=== PATIENT | female | born 1960 | race Hispanic/Latino ===

== ENCOUNTER 2017-02-19 09:55 | Emergency (ER) | payer MEDICAID ==
[2017-02-19 09:56] VITALS: BMI 24.9
[2017-02-19 10:34] VITALS: RESP 18
[2017-02-19] MEDS ORDERED: Oxycodone/Acetaminophen 5/325 mg Tab PO STA (10:46)
[2017-02-19] MEDS ORDERED: Oxycodone/Acetaminophen 5/325 mg Tab ONE (10:55)
--- NOTE | 2017-02-19 11:46 | CT ---
PROCEDURE: CT HEAD WITHOUT CONTRAST. HISTORY: headstrike, headache COMPARISON: None available. TECHNIQUE: Axial computed tomography images were obtained through the head/brain without intravenous contrast. Radiation dose: Total exam DLP = 720 mGy-cm. This CT exam was performed using one or more of the following dose reduction techniques: Automated exposure control, adjustment of the mA and/or kV according to patient size, and/or use of iterative reconstruction technique. FINDINGS: HEMORRHAGE: No intracranial hemorrhage. BRAIN: No mass effect or edema. No atrophy or chronic microvascular ischemic changes. VENTRICLES: Unremarkable. No hydrocephalus. CALVARIUM: Unremarkable. PARANASAL SINUSES: Unremarkable as visualized. No significant inflammatory changes. MASTOID AIR CELLS: Unremarkable as visualized. No inflammatory changes. OTHER FINDINGS: None. IMPRESSION: No acute intracranial abnormality. If focal neurologic deficit persists, consider MRI.
--- NOTE | 2017-02-19 11:47 | C.PDOC ---
History Of Present Illness Patient is a 56 y/o female that presents to the ED for evaluation of left sided rib pain for the last 2 months. Pt states she fell 2 months ago hitting her head , and landing on the left side of her body. Pt denies any LOC at the time, but states she had a bump on the left side of her head which has resolved now. Pt also complains of chronic reflux, and associated nausea, and vomiting. Pt states she is being seen by pain management for her chronic back and shoulder pain. Pt notes taking Percocet for her pain. Otherwise, denies any shortness of breath, cough, dysuria, hematuria, fever, chills, or any other associated symptoms at this time. Time Seen by Provider: 02/19/17 09:57 Chief Complaint (Nursing): Back Pain History Per: Patient History/Exam Limitations: no limitations Onset/Duration Of Symptoms: Days (2 months) Current Symptoms Are (Timing): Still Present Quality Of Discomfort: Burning, "Pain" Previous Symptoms: Prior Injury Associated Symptoms: None. denies: Incontinence, New Weakness, New Numbness Recent travel outside of the [place]: No Additional History Per: Patient Past Medical History Reviewed: Historical Data, Nursing Documentation, Vital Signs Vital Signs: Last Vital Signs Temp 98.4 F 02/19/17 10:28 Pulse 78 02/19/17 10:28 Resp 18 02/19/17 10:28 BP 173/98 H 02/19/17 10:28 Pulse Ox 96 02/19/17 12:04 - Medical History PMH: Anxiety, Arthritis, Back Problems (HEAD TRAUMA IN 2008), Bipolar Disorder, Depression, Fractures (spinal Fx), HTN, Migraine, Pulmonary Embolism (May 2016) Denies: Chronic Kidney Disease - [facility] Procedures ANESTH INJEC PERIPH NERV (12/11/13) ANESTH INJECT SYMP NERVE (10/29/14) INJECT STEROID (10/29/14) PHYSICAL THERAPY NEC (09/15/14) SYMPATH NERVE INJECT NEC (10/29/14) Family History: States: No Known Family Hx - Social History Hx Tobacco Use: No Hx Alcohol Use: Yes Hx Substance Use: No - Immunization History Hx Tetanus Toxoid Vaccination: () Hx Influenza Vaccination: Yes (2015) Hx Pneumococcal Vaccination: Yes Review Of Systems Except As Marked, All Systems Reviewed And Found Negative. Constitutional: Negative for: Fever, Chills Cardiovascular: Positive for: Other (left side rib pain). Negative for: Chest Pain, Palpitations Respiratory: Negative for: Cough, Shortness of Breath Gastrointestinal: Positive for: Nausea, Vomiting. Negative for: Abdominal Pain Genitourinary: Negative for: Dysuria, Hematuria Physical Exam - Physical Exam Additional Physical Exam Comments: Constitutional: No acute distress. Head: Normocephalic. Atraumatic. Eyes: PERRL. ENT: Moist mucous membranes. Neck: Supple. No midline tenderness. Cardiovascular: Regular rate. Radial pulse 2+ bilaterally. Chest: Left side rib tenderness. No crepitus. Respiratory: Clear to auscultation bilaterally. GI: Soft. Nontender. Nondistended. Back: No CVA tenderness. No midline tenderness. Musculoskeletal: No tenderness or swelling of extremities. Skin: No rash. No ecchymosis. Neurologic: Alert, no focal deficit. ED Course And Treatment O2 Sat by Pulse Oximetry: 96 Medical Decision Making Medical Decision Making: Progress note: Head CT, left ribs/chest x-ray ordered and reviewed. Patient was treated with Percocet, and Zofran PO in the ED. CXR: No rib fracture, no pneumothorax, no pleural effusion, no infiltrates. Head CT FINDINGS: HEMORRHAGE: No intracranial hemorrhage. BRAIN: No mass effect or edema. No atrophy or chronic microvascular ischemic changes. VENTRICLES: Unremarkable. No hydrocephalus. CALVARIUM: Unremarkable. PARANASAL SINUSES: Unremarkable as visualized. No significant inflammatory changes. MASTOID AIR CELLS: Unremarkable as visualized. No inflammatory changes. OTHER FINDINGS: None. IMPRESSION: No acute intracranial abnormality. If focal neurologic deficit persists, consider MRI. Will discharge patient home, instructed to f/u with pain management. Instructed to return to the ER for worsening pain, fever, dyspnea, or any other problem. Disposition - Disposition Referrals: Boubacar Beavers MD [Medical Doctor] - Disposition: HOME/ ROUTINE Disposition Time: 12:14 Condition: STABLE Instructions: Rib Contusion (ED) - Clinical Impression Clinical Impression: Contusion of rib on left side - Scribe Statement The provider has reviewed the documentation as recorded by the Shanta Watkins Provider Attestation: All medical record entries made by the Taraiblucian were at my direction and personally dictated by me. I have reviewed the chart and agree that the record accurately reflects my personal performance of the history, physical exam, medical decision making, and the department course for this patient. I have also personally directed, reviewed, and agree with the discharge instructions and disposition.
--- NOTE | 2017-02-19 12:21 | RAD ---
Chest and left ribs four views History: Left-sided rib pain. Comparison: None available. Findings: Mild venous congestion. Patchy increased markings at the left lung base. Tortuous aorta. Postsurgical changes in the proximal humerus. No evidence of gross pneumothorax. Question mild cortical irregularity at the lateral aspect of the left 9th rib which may represent nondisplaced fracture. Clinical correlation. Impression: No evidence of gross pneumothorax. Question mild cortical irregularity at the lateral aspect of the left 9th rib which may represent nondisplaced fracture. Clinical correlation.
[2017-02-19 12:23] VITALS: BP 175/107; PULSE 69; TEMP 98; O2SAT 95
== END 2017-02-19 12:23 | disposition home or self-care (01) ==
LOC: C.ER 09:55
DX: S20.212A Contusion of left front wall of thorax, initial encounter (principal); W19.XXXA Unspecified fall, initial encounter; Y93.9 Activity, unspecified; Y92.9 Unspecified place or not applicable

== ENCOUNTER 2017-12-07 07:18 | Emergency (ER) | payer MEDICAID ==
[2017-12-07 07:18] VITALS: BMI 24.0
[2017-12-07 07:34] VITALS: O2SAT 95
[2017-12-07] MEDS ORDERED: Sodium Chloride 0.9% 1,000 ML IV ONE (07:59)
--- NOTE | 2017-12-07 08:10 | C.PDOC ---
History Of Present Illness 56 yo female w/PMHx of HTN, hx of PE ( 2016) , Anxiety, Arthritis, Bipolar Disorder, Depression, hx of spinal Fractures , chronic neck and back pain ( under Pain management of Dr. Torres) present to ED for evaluation of exacerbation of middle back pain. Pt also reports, (+) few episodes of vomiting for past 2 days," was unable tolerate my medication yesterday" . Pt also admits, cold sx prior to onset of current sx, " might strain my back from all hard cough I had" . Otherwise, pt denies high fever, chills, headache, dizziness, neck pain, CP, SOB, dyspnea, diaphoresis, palpitation, hematemesis, diarrhea, back pain, UTI sx. Ambulate to ED for evaluation, not in nay apparent distress. Time Seen by Provider: 12/07/17 07:26 Chief Complaint (Nursing): Back Pain History Per: Patient Past Medical History Reviewed: Historical Data, Nursing Documentation, Vital Signs Vital Signs: Last Vital Signs Temp 98.4 F 12/07/17 07:25 Pulse 74 12/07/17 07:25 Resp 20 12/07/17 07:25 BP 120/86 12/07/17 07:25 Pulse Ox 95 12/07/17 10:38 - Medical History PMH: Anxiety, Arthritis, Back Problems (HEAD TRAUMA IN 2008), Bipolar Disorder, Depression, Fractures (spinal Fx), HTN, Migraine, Pulmonary Embolism (May 2016) Denies: Chronic Kidney Disease - [facility] Procedures ANESTH INJEC PERIPH NERV (12/11/13) ANESTH INJECT SYMP NERVE (10/29/14) INJECT STEROID (10/29/14) PHYSICAL THERAPY NEC (09/15/14) SYMPATH NERVE INJECT NEC (10/29/14) Family History: States: No Known Family Hx - Social History Hx Tobacco Use: No Hx Alcohol Use: No Hx Substance Use: Yes - Immunization History Hx Tetanus Toxoid Vaccination: (k) Hx Influenza Vaccination: Yes (2015) Hx Pneumococcal Vaccination: Yes Review Of Systems Except As Marked, All Systems Reviewed And Found Negative. Constitutional: Negative for: Fever, Chills Eyes: Negative for: Vision Change ENT: Negative for: Nose Discharge, Throat Pain, Throat Swelling Cardiovascular: Negative for: Chest Pain, Palpitations, Edema, Light Headedness Respiratory: Positive for: Cough. Negative for: Shortness of Breath, Wheezing Gastrointestinal: Positive for: Nausea, Vomiting. Negative for: Abdominal Pain , Diarrhea, Melena, Hematochezia, Hematemesis Genitourinary: Negative for: Dysuria, Frequency, Incontinence Musculoskeletal: Positive for: Back Pain. Negative for: Neck Pain Skin: Negative for: Rash Neurological: Negative for: Weakness, Numbness, Altered Mental Status, Headache , Dizziness Physical Exam - Physical Exam Appears: Well, Non-toxic, No Acute Distress Skin: Normal Color, Warm, Dry Head: Normacephalic Eye(s): bilateral: PERRL Nose: No Flaring, No Discharge Oral Mucosa: Moist, No Drooling Throat: No Erythema, No Drooling Neck: Trachea Midline, Supple Cardiovascular: Rhythm Regular, No Murmur, No JVD, Other ((-) carotid bruits b/L ) Respiratory: No Decreased Breath Sounds, No Accessory Muscle Use, No Stridor, No Wheezing Gastrointestinal/Abdominal: Soft, No Tenderness, No Distention, No Guarding Back: No CVA Tenderness, No Vertebral Tenderness, Other (diffuse periscapular tenderness, no mdiline tenderness) Extremity: Normal ROM, No Deformity, No Swelling Neurological/Psych: Oriented x3, Normal Speech ED Course And Treatment - Laboratory Results Result Diagrams: 12/07/17 08:59 12/07/17 08:59 Lab Interpretation: Normal ECG: Interpreted By Me, Viewed By Me (and ED attending) Interpretation Of ECG: SR@62/min, NAD, T wave inversion in III, no acute ST-T changes. O2 Sat by Pulse Oximetry: 95 Pulse Ox Interpretation: Normal - Radiology CXR: Interpreted by Me, Viewed By Me CXR Interpretation: Yes: No Acute Disease - Other Rad CXR X-Ray: Read By Radiologist Interpretation: LUNGS: No active pulmonary disease. PLEURA: No significant pleural effusion identified. No pneumothorax apparent. CARDIOVASCULAR: Normal. Left cardiophrenic benign fat pad probable -similar-appearing. OSSEOUS STRUCTURES: Right proximal humeral orthopedic hardware partially visualize. Bilateral shoulder arthrosis. VISUALIZED UPPER ABDOMEN: Normal. OTHER FINDINGS: None. IMPRESSION: No active disease. Progress Note: Pt was OBS in ED for 3.5 hours. On re-eval, pt reports moderate improvement in her symptoms, pt st " my back pain is gone". Afebrile, hemdoynamicalys table. Non-toxic. Pt was given PO challenfe, tolerated well. PuslEOx 95% RA. ENT: no acute findings. neck: SUpple, (-) JVD, (-) carotid bruits B/L. Lungs: CTA B/L, BS equal B/L. CVS: (+)S1S2, reg, (-) murmur. Abd : benign, (-) guarding, (-) rebound. Back: (-) CVA tenderness. Neuorlogicaly intact. Blood work review and appears without acute abnormalities. CXR, EKG- normal study. Pt has clinical findings c/w diffuse back pain, hx of chronic back pain; vomiting r/o viral illness. Pt advised. ref. to f/u with PMD in 2- 3 days for re-eavl. return to ED if any worsening or new changes. Disposition Counseled Patient/Family Regarding: Studies Performed, Diagnosis, Need For Followup, Rx Given - Disposition Referrals: Brian Oliver,MD Isacc [Non-Staff] - [facility] [Outside] Disposition: HOME/ ROUTINE Disposition Time: 10:37 Condition: STABLE Additional Instructions: ENCOURAGE FLUIDS TAKE MEDICATION FOR NAUSEA AND VOMITING PRESCRIBED FOLLOW UP WITH PMD, PAIN MANAGEMENT IN 2-3 DAYS FOR RE-EVALUATION. RETURN TO ED IF ANY WORSENING OR NEW CHANGES. Prescriptions: Ondansetron ODT [Zofran ODT] 1 odt PO BID PRN #6 odt PRN Reason: Nausea/Vomiting Instructions: Acute Nausea and Vomiting (ED), Chronic Back Pain (ED) Forms: [employer] (Azeri) - Clinical Impression Clinical Impression: Vomiting, Back pain
--- NOTE | 2017-12-07 08:18 | RAD ---
HISTORY: SOB COMPARISON: 02/19/2017 TECHNIQUE: Chest PA and lateral FINDINGS: LUNGS: No active pulmonary disease. PLEURA: No significant pleural effusion identified. No pneumothorax apparent. CARDIOVASCULAR: Normal. Left cardiophrenic benign fat pad probable -similar-appearing OSSEOUS STRUCTURES: Right proximal humeral orthopedic hardware partially visualize. Bilateral shoulder arthrosis VISUALIZED UPPER ABDOMEN: Normal. OTHER FINDINGS: None. IMPRESSION: No active disease.
[2017-12-07] MEDS ORDERED: MethylPREDNISolone 40 mg Vial ONE (09:02)
[2017-12-07] MEDS ORDERED: Sodium Chloride 0.9% 1,000 ML ONE (09:02)
[2017-12-07 09:07] LABS: BASO % 0.5 % (0.0-2.0); EOS # 0.1 K/uL (0.0-0.7); EOS % 1.4 % (0.0-4.0); HEMOGLOBIN 14.5 g/dL (11.0-16.0); LYMPH # 1.4 K/uL (1.0-4.3); LYMPH % 20.6 % (20.0-40.0); MEAN CELL VOLUME 89.4 fL (81.0-99.0); MEAN CORPUSCULAR HEMOGLOBIN 30.9 pg (27.0-31.0); MEAN CORPUSCULAR HGB CONC 34.6 g/dL (33.0-37.0); MEAN PLATELET VOLUME 8.9 fL (7.2-11.7); MONO # 0.6 K/uL (0.0-0.8); MONO % 8.7 % (0.0-10.0); NEUT # 4.7 K/uL (1.8-7.0); NEUT % 68.8 % (50.0-75.0); RBC 4.67 Mil/uL (3.80-5.20); RED CELL DISTRIBUTION WIDTH 13.5 % (11.5-14.5); WHITE BLOOD COUNT 6.9 K/uL (4.8-10.8)
[2017-12-07 09:21] LABS: ALB/GLOB RATIO 1.4 (1.0-2.1); ALBUMIN 4.3 g/dL (3.5-5.0); ALT/SGPT 33 U/L (9-52); AST/SGOT 25 U/L (14-36); BLOOD UREA NITROGEN 10 mg/dL (7-17); CALCIUM 9.9 mg/dl (8.6-10.4); GFR AFRICAN-AMERICAN > 60; GFR NON-AFRICAN AMERICAN > 60
[2017-12-07 10:32] LABS: INR 1.1; PARTIAL THROMBOPLASTIN TIME 29 SECONDS (21-34); PROTHROMBIN TIME 12.5 SECONDS (9.7-12.2)
[2017-12-07 10:33] LABS: D DIMER < 200 ng/mlDDU (0-243)
[2017-12-07 11:13] VITALS: BP 136/84; PULSE 60; RESP 16; TEMP 97.6
--- NOTE | 2017-12-07 20:54 | CARD ---
APPROVED REPORT EKG Measurement Heart [id number] <Conclusion> Normal sinus rhythm Nonspecific ST abnormality Abnormal ECG
== END 2017-12-07 11:30 | disposition home or self-care (01) ==
LOC: C.ER 07:18
DX: M54.9 Dorsalgia, unspecified (principal); R11.10 Vomiting, unspecified; I10 Essential (primary) hypertension; Z86.711 Personal history of pulmonary embolism
CPT/HCPCS: 71046; 80053; 85025; 85378; 85610; 85730; 93005; 96361; 96374; 96375; 99284; J2405; J2930; J7040

== ENCOUNTER 2018-04-18 08:07 | Inpatient (IN) | payer MEDICAID ==
[2018-04-18 08:08] VITALS: BMI 24.0
--- NOTE | 2018-04-18 08:29 | C.PDOC ---
History Of Present Illness 57yo female, presents to ED for evaluation of worsening suicidal ideation over the past several days. Patient reports she has been feeling suicidal over the past month; she states 1 month ago, she was advised by Dr. Massey for admission but she did not want it at that time. Patient also reports she misplaced her medications sometimes over the weekend and has not taken a dose since 04/13/18/. She denies any suicidal attempts. Patient offers no medical complaints. PMD: None provided Time Seen by Provider: 04/18/18 08:21 Chief Complaint (Nursing): Psychiatric Evaluation History Per: Patient History/Exam Limitations: no limitations Onset/Duration Of Symptoms: Persistent Current Symptoms Are (Timing): Still Present Associated Symptoms: Suicidal Thoughts. denies: Suicidal Plan Additional History Per: Patient Past Medical History Reviewed: Historical Data, Nursing Documentation, Vital Signs Vital Signs: Last Vital Signs Temp 98.4 F 04/18/18 08:09 Pulse 83 04/18/18 08:09 Resp 18 04/18/18 08:09 BP 159/101 H 04/18/18 08:09 Pulse Ox 98 04/18/18 09:35 - Medical History PMH: Anxiety, Arthritis, Back Problems (HEAD TRAUMA IN 2008), Bipolar Disorder, Depression, Fractures (spinal Fx), HTN, Migraine, Pulmonary Embolism (May 2016) Denies: Chronic Kidney Disease Surgical History: No Surg Hx - [facility] Procedures ANESTH INJEC PERIPH NERV (12/11/13) ANESTH INJECT SYMP NERVE (10/29/14) INJECT STEROID (10/29/14) PHYSICAL THERAPY NEC (09/15/14) SYMPATH NERVE INJECT NEC (10/29/14) Family History: States: No Known Family Hx - Social History Hx Tobacco Use: No Hx Alcohol Use: No Hx Substance Use: Yes - Immunization History Hx Tetanus Toxoid Vaccination: (unk) Hx Influenza Vaccination: Yes (2015) Hx Pneumococcal Vaccination: Yes Review Of Systems Except As Marked, All Systems Reviewed And Found Negative. Constitutional: Negative for: Fever, Chills Cardiovascular: Negative for: Chest Pain Respiratory: Negative for: Shortness of Breath Gastrointestinal: Negative for: Abdominal Pain Psych: Positive for: Suicidal ideation Physical Exam - Physical Exam Appears: Other (anxious appearing) Skin: Warm, Dry Head: Atraumatic, Normacephalic Eye(s): bilateral: Normal Inspection Oral Mucosa: Moist Neck: Normal ROM, Supple Chest: Symmetrical Cardiovascular: Rhythm Regular Respiratory: Normal Breath Sounds Extremity: Normal ROM Neurological/Psych: Oriented x3, Other (active suicidal ideation no psychosis) ED Course And Treatment - Laboratory Results Result Diagrams: 04/18/18 08:37 04/18/18 08:37 O2 Sat by Pulse Oximetry: 98 (RA) Pulse Ox Interpretation: Normal Progress - Re-Evaluation Re-evaluation Note: 04/18/18 09:35 MED CLEAR FOR CRISIS EVAL. CRISIS NOTIFIED. - Data Reviewed Data Reviewed: Lab, Diagnostic imaging, Old records Disposition Counseled Patient/Family Regarding: Studies Performed, Diagnosis - Disposition Disposition: HOSPITALIZED Disposition Time: 09:57 Condition: STABLE Forms: [employer] (Georgian) - POA Present On Arrival: None - Clinical Impression Clinical Impression: Major depression, Suicidal ideation - Scribe Statement The provider has reviewed the documentation as recorded by the Scribe (Jennifer Jay) Provider Attestation: All medical record entries made by the Scribe were at my direction and personally dictated by me. I have reviewed the chart and agree that the record accurately reflects my personal performance of the history, physical exam, medical decision making, and the department course for this patient. I have also personally directed, reviewed, and agree with the discharge instructions and disposition. Decision To Admit - Pt Status Changed To: Hospital Disposition Of: Inpatient - Admit Certification Admit to Inpatient:: After my assessment, the patient will require hospitalization for at least two midnights. This is because of the severity of symptoms shown, intensity of services needed, and/or the medical risk in this patient being treated as an outpatient. - InPatient: Physician Admission Certification: I certify that this patient requires 2 or more midnights of care for the following reason:: SEE NOTE - . Bed Request Type: Psychiatry Admitting Physician: Neeru Jimenez Patient Diagnosis: Major depression, Suicidal ideation
[2018-04-18 08:42] LABS: BASO # 0.1 K/uL (0.0-0.2); BASO % 0.7 % (0.0-2.0); EOS % 0.3 % (0.0-4.0); HEMOGLOBIN 14.2 g/dL (11.0-16.0); LYMPH % 11.1 % (20.0-40.0); MEAN CELL VOLUME 87.5 fL (81.0-99.0); MEAN CORPUSCULAR HEMOGLOBIN 30.7 pg (27.0-31.0); MEAN CORPUSCULAR HGB CONC 35.1 g/dL (33.0-37.0); MEAN PLATELET VOLUME 8.8 fL (7.2-11.7); MONO # 0.3 K/uL (0.0-0.8); MONO % 3.6 % (0.0-10.0); NEUT # 7.3 K/uL (1.8-7.0); NEUT % 84.3 % (50.0-75.0); NRBC % 0.1 % (0.0-2.0); RBC 4.63 Mil/uL (3.80-5.20); RED CELL DISTRIBUTION WIDTH 13.9 % (11.5-14.5); WHITE BLOOD COUNT 8.7 K/uL (4.8-10.8)
[2018-04-18 09:00] LABS: ACETAMINOPHEN < 10.0 ug/mL (10.0-30.0); SALICYLATE < 1.0 mg/dL 1
[2018-04-18 09:02] LABS: ALB/GLOB RATIO 1.5 (1.0-2.1); ALBUMIN 4.5 g/dL (3.5-5.0); ALT/SGPT 14 U/L (9-52); AST/SGOT 25 U/L (14-36); BLOOD UREA NITROGEN 4 mg/dL (7-17); CALCIUM 9.7 mg/dl (8.6-10.4); GFR AFRICAN-AMERICAN > 60; GFR NON-AFRICAN AMERICAN > 60
[2018-04-18 09:09] LABS: URINE BILIRUBIN NEGATIVE (NEGATIVE); URINE BLOOD NEGATIVE (NEGATIVE); URINE CLARITY Clear (Clear); URINE COLOR YELLOW (YELLOW); URINE GLUCOSE (UA) NEGATIVE (Normal); URINE PROTEIN NEGATIVE (NEGATIVE); URINE UROBILINOGEN 0.2 mg/dL (0.2-1.0)
[2018-04-18 09:10] LABS: SQUAMOUS EPITHIAL 5 /hpf (0-5); URINE LEUKOCYTE ESTERASE NEGATIVE Leu/uL (Negative)
[2018-04-18 09:11] LABS: BARBITURATES, UR NEGATIVE (NEGATIVE); OPIATES, UR NEGATIVE (NEGATIVE); PHENCYCLIDINE, UR NEGATIVE (NEGATIVE)
[2018-04-18 09:33] LABS: BENZODIAZEPINES, UR POSITIVE (NEGATIVE)
--- NOTE | 2018-04-18 12:28 | PCM.PSYCH ---
Initial Psychiatric Evaluation - Initial Psychiatric Evaluation Type of Admission: Voluntary Legal Status: Capacity Chief Complaint (in patient's own words): I was feeling very depressed and suicidal.' History of Present Illness and Precipitating Events: Patient is a 57 y/o CF, who lives alone and currently unemployed, came to the ED for depressed mood and suicidal ideations with plan. Patient reports a long history of bipolar disorder. She has been admitted at [facility] in the past. (1989) Since then she has been following up with the outpatient clinic, [facility]. Currently she is seeing Dr. Massey. As per the patient, since past few weeks she is becoming increasingly depressed. admission since few weeks recently depressed. Patient further explained that she's been off her medications for about 5 days due to being unable to locate them and since she's been off them her psychiatric symptoms have increased. Patient currently admits to suicidal ideations with a plan to "buy drugs and drink alcohol". Patient also stated that, 'this morning she was heading to [facility] to take a train to go somewhere where nobody knows her so she could " ". She reports depressed mood, feelings of hopelessness and helplessness and crying spells. She reports stressors including back pain and neck pain, and living alone. She also reports irritability and agitation and poor sleep. She also reports auditory hallucinations noncommand type and visual hallucinations, seeing shadows. However she denies any delusions. She denies any drinking or any substance abuse. PMH HTN, Back pain Current Medications: Active Medications Generic Name Dose Route Start Last Admin Trade Name Freq PRN Reason Stop Dose Admin Acetaminophen 650 mg 04/18/18 12:12 Tylenol 325mg Tab PO Q4H PRN Fever greater than 101 F Albuterol puff 04/18/18 12:30 Ventolin Hfa 90 Mcg/Actuation (8 G) IH DAILY MARY Clonidine HCl 0.1 mg 04/18/18 12:12 Catapres PO Q8 PRN COWS Score More or Equal to 5 Home Med 160 mg 04/18/18 12:30 Valsartan [Diovan] PO DAILY MARY Hydroxyzine HCl 25 mg 04/18/18 12:13 Atarax PO Q6 PRN Anxiety Lorazepam 1 mg 04/18/18 12:24 Ativan PO Q6 PRN Agitation Trazodone HCl 50 mg 04/18/18 22:00 Desyrel PO [facility] Past Psychiatric History - Past Psychiatric History Previous Treatment History: Inpatient Pertinent Medical Hx (Current Medical&Sleep Prob, Allergies): Allergies Allergy/AdvReac Type Severity Reaction Status Date / Time acetaminophen [From Tylenol] Allergy RASH Verified 04/18/18 08:13 aspirin Allergy RASH Verified 04/18/18 08:13 ibuprofen Allergy VOMITING Verified 04/18/18 08:13 ALPRAZolam [Xanax] 1 mg PO TID 04/27/16 Valsartan [Diovan] 160 mg PO DAILY 08/25/16 Albuterol HFA [Ventolin HFA 90 mcg/actuation (8 g)] 2 100 IH DAILY 02/19/17 Abilify 04/18/18 Paxil 04/18/18 Review of Systems - Review of Systems All systems: reviewed and no additional remarkable complaints except - Psychiatric Psychiatric: Anxiety, Auditory Hallucinations, Irritability, Mood Swings, Suicidal Ideation Mental Status Examination - Personal Presentation Personal Presentation: Looks stated age - Affect Affect: Broad - Motor Activity Motor Activity: Calm - Reliability in Providing Information Reliability in Providing Information: Fair - Speech Speech: Organized - Mood Mood: Depressed, Anxious - Formal Thought Process Formal Thought Process: Hallucinations, Delusions, Paranoia - Hallucinations/Delusions Hallucinations: Visual, Auditory Delusions: Persecution - Obsessions/Compulsions Obsessions: No Compulsions: No - Cognitive Functions Orientation: Person, Place, Situation, Time Sensorium: Alert Attention/Concentration: Attentive Abstract Thinking: [place] Estimate of Intelligence: Below average Judgement: Imparied, as evidence by: Poor judgement, Imparied, as evidence by: Lack of insight into illness - Risk Risk: Suicidal, Diminished functioning - Limitations Limitations: Living alone DSM 5 DX - DSM 5 DSM 5 Diagnosis: Bipolar disorder MRE mixed severe without psychotic features Cannabis use disorder moderate - Recommended/Plan of Treatment Treatment Recommendations and Plan of Treatment: Bipolar disorder MRE mixed severe without psychotic features Cannabis use disorder moderate -CBT -Psychoeducation -Supportive therapy, group therapy, individual therapy -Abilify 5 mg by mouth daily at bedtime -Trazodone 50 mg by mouth daily at bedtime -Paxil 20 mg by mouth daily- -Ativan 1 mg by mouth every 6 hours when necessary -Hydroxyzine 25 mg by mouth every 6 hours when necessary HTN Continue medication Back pain Tramadol 50 mg by mouth every 8 hours when necessary
[2018-04-18] MEDS ORDERED: Albuterol HFA 90 mcg/actuation (8 g) IH PRN (12:30)
--- NOTE | 2018-04-18 15:08 | PCM.BM ---
<June Balderrama - Last Filed: 04/18/18 15:06> Treatment Plan Problems - Problems identified on initial assessmt depression Date Initiated: 04/18/18 Time Initiated: 15:07 Assessment reference: NA Status: Active Treatment assets and liabiliti Patient Assests: cooperative, ADL independent, cognitively intact Patient Liabilities: live alone, poor support system, medical problems - Milieu Protocol Maintain good personal hygiene: daily Encourage regular showers Conduct patient checks and document Observation sheet: Q15 minutes Maintain personal safety: every shift Educate patient to report safety concerns to staff, every shift Monitor environment for contraband/sharps Medication safety: Monitor for expected outcome, potential side effects: every shift, Assess barriers to learning: every shift, Assess readiness for medication education: every shift <Lina Isaacs - Last Filed: 04/20/18 14:41> Family Contact Family involvement: Patient does not wish Family/SO involvement Family contact: Patient declines to allow family contact at present - Goals for Treatment Patient goals for treatment: "I want to return to [facility] with Dr. Massey." Discharge/Continuing Care - Education Needs Education Needs: Patient Medication, Patient Diagnosis/Disease Process - Discharge Discharge Criteria: Free of Suicidal thoughts, Ability to care for self, Reduction of target symptoms Discharge to:: Home - Treatment Team Participation Discussed with Family/SO: No Was Patient/Family/SO present at Treatment Team Meeting: Yes <Neeru Jimenez - Last Filed: 04/23/18 11:26> - Diagnosis (1) Bipolar disorder Status: Acute Interventions: 04/23/18 11:26 * Assess/adjust medications daily and /or as needed * See patient on an individual basis 7x/week to assess level of manic behaviors and stability * Discuss risks, benefits, side effects and alternatives of medications *
--- NOTE | 2018-04-19 10:09 | PCM.PYCHPN ---
Psychiatric Progress Note - Psychiatric Progress Note Patient seen today, length of contact: 15 min Patient Chief Complaint: I was feeling very depressed' Problems Identified/Issues Discussed: Patient seen and evaluated, chart reviewed and discussed with the nurse. Pt still reports depressed mood and reports feelings of hopelessness and helplessness. She was found crying in her room and still reports poor sleep and poor appetite. She remained isolated and withdrawn. She is taking medications and denies any side effects Symptoms are improving but she needs more time for stabilization. Supportive therapy and psychoeducation were given. Medication Change: Yes Medical Record Reviewed: Yes Mental Status Examination - Cognitive Function Orientation: Person, Place, Situation, Time Memory: Intact Attention: WNL Concentration: Poor Association: WNL Fund of Knowledge: Poor - Mood Mood: Depressed, Anxious - Affect Affect: Broad - Speech Speech: Soft - Formal Thought Process Formal Thought Process: Hallucinations, Delusions - Suicidal Ideation Suicidal Ideation: No - Homicidal Ideation Homicidal Ideation: No Goal/Treatment Plan - Goal/Treatment Plan Need for Continued Stay: Severe depression anxiety, Severe functional impairment Progress Toward Problem(s) and Goals/Treatment Plan: Bipolar disorder MRE mixed severe without psychotic features Cannabis use disorder moderate -CBT -Psychoeducation -Supportive therapy, group therapy, individual therapy -Abilify 5 mg by mouth daily at bedtime -Trazodone 50 mg by mouth daily at bedtime -Paxil 20 mg by mouth daily- -Ativan 1 mg by mouth every 6 hours when necessary -Hydroxyzine 25 mg by mouth every 6 hours when necessary HTN Continue medication Back pain Tramadol 50 mg by mouth every 8 hours when necessary
--- NOTE | 2018-04-20 15:43 | PCM.PYCHPN ---
Psychiatric Progress Note - Psychiatric Progress Note Patient seen today, length of contact: 15 min Patient Chief Complaint: I m still feeling very depressed' Problems Identified/Issues Discussed: Patient seen and evaluated, chart reviewed and discussed with the nurse. Pt still reports depressed mood but reports some improvement in the feelings of hopelessness and helplessness. She denies any crying episode but still reports poor sleep and poor appetite. She remained isolated and withdrawn. She is taking medications and denies any side effects Symptoms are improving but she needs more time for stabilization. Supportive therapy and psychoeducation were given. Medication Change: Yes (Increase Abilify, start Neurontin) Medical Record Reviewed: Yes Mental Status Examination - Cognitive Function Orientation: Person, Place, Situation, Time Memory: Intact Attention: WNL Concentration: Poor Association: WNL Fund of Knowledge: Poor - Mood Mood: Depressed, Anxious - Affect Affect: Broad - Speech Speech: Soft - Formal Thought Process Formal Thought Process: Hallucinations, Delusions - Suicidal Ideation Suicidal Ideation: No - Homicidal Ideation Homicidal Ideation: No Goal/Treatment Plan - Goal/Treatment Plan Need for Continued Stay: Severe depression anxiety, Severe functional impairment Progress Toward Problem(s) and Goals/Treatment Plan: Bipolar disorder MRE mixed severe without psychotic features Cannabis use disorder moderate -CBT -Psychoeducation -Supportive therapy, group therapy, individual therapy -Abilify 10 mg by mouth daily at bedtime -Trazodone 50 mg by mouth daily at bedtime -Paxil 20 mg by mouth HS -Neurontin 100 mg by mouth 3 times a day -Ativan 1 mg by mouth every 6 hours when necessary -Hydroxyzine 25 mg by mouth every 6 hours when necessary HTN Continue medication Back pain Tramadol 50 mg by mouth every 8 hours when necessary
--- NOTE | 2018-04-21 16:08 | PCM.PYCHPN ---
Psychiatric Progress Note - Psychiatric Progress Note Patient seen today, length of contact: 15 min Patient Chief Complaint: "My sleep was better last night" Problems Identified/Issues Discussed: Patient was seen. Chart was reviewed important content noted. Nurse input received. Patient has no new complaints. No events overnight. Patient slept well and is eating well. Patient still has depressive symptoms. Denies suicidal or homicidal ideations. Patient does not report hallucinations. No delusions elicited. No paranoia elicited. Patient has remained in good clinical and behavioral control. Symptoms are improving, but needs more time to stabilize. Patient is finding medications beneficial and would like to continue with treatment plan. Patient appreciated that treatment team is trying to help. Medication Change: No (Increase Abilify, start Neurontin) Medical Record Reviewed: Yes Mental Status Examination - Cognitive Function Orientation: Person, Place, Situation, Time Memory: Intact Attention: WNL Concentration: Poor Association: WNL Fund of Knowledge: Poor Decription of patient's judgement and insights: I/J fair/fair - Mood Mood: Depressed, Anxious - Affect Affect: Broad - Speech Speech: Soft - Formal Thought Process Formal Thought Process: Hallucinations, Delusions - Suicidal Ideation Suicidal Ideation: No Plan: denied - Homicidal Ideation Homicidal Ideation: No Plan: denied Goal/Treatment Plan - Goal/Treatment Plan Need for Continued Stay: Severe depression anxiety, Severe functional impairment Progress Toward Problem(s) and Goals/Treatment Plan: Continue current treatment and management as per primary team Therapy in milieu Psychoeducation provided - Smoking Cessation Smoking Cessation Initiated: Yes
--- NOTE | 2018-04-22 17:57 | PCM.PYCHPN ---
Psychiatric Progress Note - Psychiatric Progress Note Patient seen today, length of contact: 15 min Patient Chief Complaint: "I'm feeling better" Problems Identified/Issues Discussed: Patient was seen. Chart was reviewed important content noted. Nurse input received. Patient has no new complaints. No events overnight. Patient still has depressive symptoms. Symptoms are improving, but needs more time to stabilize. Denies suicidal or homicidal ideations. Patient does not report hallucinations. No delusions elicited. No paranoia elicited. Patient has remained in good clinical and behavioral control. Patient is finding medications beneficial and would like to continue with treatment plan. Patient appreciated that treatment team is trying to help. DSM 5 Symptoms Update: Bipolar disorder Medication Change: Yes Medical Record Reviewed: Yes Mental Status Examination - Cognitive Function Orientation: Person, Place, Situation, Time Memory: Intact Attention: WNL Concentration: Poor Association: WNL Fund of Knowledge: Poor Decription of patient's judgement and insights: good/good - Mood Mood: Depressed, Anxious - Affect Affect: Broad - Speech Speech: Soft - Formal Thought Process Formal Thought Process: Delusions - Suicidal Ideation Suicidal Ideation: No Plan: denied - Homicidal Ideation Homicidal Ideation: No Plan: denied Goal/Treatment Plan - Goal/Treatment Plan Need for Continued Stay: Severe depression anxiety, Discharge may exacerbated symptoms, Severe functional impairment Progress Toward Problem(s) and Goals/Treatment Plan: Continue current treatment and management as per primary team Therapy in milieu Psychoeducation provided
[2018-04-23 06:42] VITALS: BP 125/83; PULSE 108; RESP 18; TEMP 98.3; O2SAT 98
--- NOTE | 2018-04-23 10:01 | PCM.PYCHDC ---
Mental Status Examination - Mental Status Examination Orientation: Person, Place, Situation, Time Memory: Intact Mood: Neutral Affect: Constricted Speech: Soft Attention: WNL Concentration: WNL Association: WNL Fund of Knowledge: WNL Formal Thought Process: No Impairment Description of patient's judgement and insight: good, fair Psychotic Thoughts and Behaviors: denies any AVH Suicidal Ideation: No Current Homicidal Ideation?: No Discharge Summary - Discharge Note Reason for Hospitalization: Patient is a 57 y/o CF, who lives alone and currently unemployed, came to the ED for depressed mood and suicidal ideations with plan. Patient reports a long history of bipolar disorder. She has been admitted at [facility] in the past. (1989) Since then she has been following up with the outpatient clinic, [facility]. Currently she is seeing Dr. Massey. As per the patient, since past few weeks she is becoming increasingly depressed. admission since few weeks recently depressed. Patient further explained that she's been off her medications for about 5 days due to being unable to locate them and since she's been off them her psychiatric symptoms have increased. Patient currently admits to suicidal ideations with a plan to "buy drugs and drink alcohol". Patient also stated that, 'this morning she was heading to [facility] to take a train to go somewhere where nobody knows her so she could " ". She reports depressed mood, feelings of hopelessness and helplessness and crying spells. She reports stressors including back pain and neck pain, and living alone. She also reports irritability and agitation and poor sleep. She also reports auditory hallucinations noncommand type and visual hallucinations, seeing shadows. However she denies any delusions. She denies any drinking or any substance abuse. Consultations:: List each consultation separately and include: 1. Reason for request. 2. Findings. 3. Follow-up Summary of Hospital Course include:: 1. Description of specific treatment plan utilized for patients during their course of treatmen. 2. Summarize the time- course for resolution of acute symptoms and/or regressed behaviors. 3. Describe issues identified and worked on during hospitalization. 4. Describe medication utilized. 5. Describe medical problems identified and treated. 6. Reassessment of suicide risk Summary of Hospital Course: Patient is a 57 y/o CF, who lives alone and currently unemployed, came to the ED for depressed mood and suicidal ideations with plan. Patient reports a long history of bipolar disorder. She has been admitted at [facility] in the past. (1989) Since then she has been following up with the outpatient clinic, [facility]. Currently she is seeing Dr. Massey. As per the patient, since past few weeks she is becoming increasingly depressed. admission since few weeks recently depressed. Patient further explained that she's been off her medications for about 5 days due to being unable to locate them and since she's been off them her psychiatric symptoms have increased. Patient currently admits to suicidal ideations with a plan to "buy drugs and drink alcohol". Patient also stated that, 'this morning she was heading to [facility] to take a train to go somewhere where nobody knows her so she could " ". She reports depressed mood, feelings of hopelessness and helplessness and crying spells. She reports stressors including back pain and neck pain, and living alone. She also reports irritability and agitation and poor sleep. She also reports auditory hallucinations noncommand type and visual hallucinations, seeing shadows. However she denies any delusions. She denies any drinking or any substance abuse. PMH HTN, Back pain - Final Diagnosis (DSM 5) Condition upon Discharge: STABLE DSM 5: Bipolar disorder MRE mixed severe without psychotic features Cannabis use disorder moderate Disposition: HOME/ ROUTINE Follow-up Treatment Plan: Bipolar disorder MRE mixed severe without psychotic features Cannabis use disorder moderate -CBT -Psychoeducation -Supportive therapy, group therapy, individual therapy -Abilify 10 mg by mouth daily at bedtime -Trazodone 50 mg by mouth daily at bedtime -Paxil 20 mg by mouth HS -Neurontin 100 mg by mouth 3 times a day -Ativan 1 mg by mouth every 6 hours when necessary -Hydroxyzine 25 mg by mouth every 6 hours when necessary HTN Continue medication Back pain Tramadol 50 mg by mouth every 8 hours when necessary Prescriptions/Medication Reconciliation: ARIPiprazole [Abilify] 10 mg PO HS #30 tab Gabapentin [Neurontin] 100 mg PO BID #60 cap PARoxetine [Paxil] 20 mg PO HS #30 tab traZODone [Desyrel] 50 mg PO HS #30 tab - Smoking Cessation Smoking Cessation Medication prescribed: No - Antipsychotic Medications Pt discharged on 2 or more routine antipsychotic medications: No
== END 2018-04-23 12:46 | disposition home or self-care (01) | DRG 430 ==
LOC: C.ER 08:07 → C.5E 10:03
PROVIDERS: ADMIT Psychiatry & Neurology Psychiatry; ATTEND Psychiatry & Neurology Psychiatry
DX: F31.63 Bipolar disorder, current episode mixed, severe, without psychotic features (principal); F17.200 Nicotine dependence, unspecified, uncomplicated; F12.20 Cannabis dependence, uncomplicated; I10 Essential (primary) hypertension; R45.851 Suicidal ideations; Z86.711 Personal history of pulmonary embolism; F19.10 Other psychoactive substance abuse, uncomplicated

== ENCOUNTER 2018-05-10 17:30 | Emergency (ER) | payer MEDICAID ==
[2018-05-10 17:31] VITALS: BMI 24.0
[2018-05-10 17:46] VITALS: BP 147/86; PULSE 83; RESP 20; TEMP 98.2; O2SAT 100
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
== END 2018-05-10 19:01 | disposition home or self-care (01) ==
LOC: C.ER 17:30
DX: S42.022A Displaced fracture of shaft of left clavicle, initial encounter for closed fracture (principal); V19.9XXA Pedal cyclist (driver) (passenger) injured in unspecified traffic accident, initial encounter; Y93.55 Activity, bike riding; I10 Essential (primary) hypertension

== ENCOUNTER 2018-10-03 18:21 | Emergency (ER) | payer MEDICAID ==
[2018-10-03 18:21] VITALS: BMI 24.0
[2018-10-03 18:28] VITALS: TEMP 97.5; O2SAT 98
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
[2018-10-03 21:12] VITALS: BP 146/84; PULSE 84; RESP 16
--- NOTE | 2018-10-04 04:54 | CT ---
Date of service: 10/03/2018 PROCEDURE: CT HEAD WITHOUT CONTRAST. HISTORY: trauma COMPARISON: Comparison is made to the previous study dated 02/19/2017 TECHNIQUE: Axial computed tomography images were obtained through the head/brain without intravenous contrast. Radiation dose: Total exam DLP = 1127.71 mGy-cm. This CT exam was performed using one or more of the following dose reduction techniques: Automated exposure control, adjustment of the mA and/or kV according to patient size, and/or use of iterative reconstruction technique. FINDINGS: HEMORRHAGE: No intracranial hemorrhage. BRAIN: No mass effect or edema. No atrophy or chronic microvascular ischemic changes. VENTRICLES: Unremarkable. No hydrocephalus. CALVARIUM: Unremarkable. PARANASAL SINUSES: Unremarkable as visualized. No significant inflammatory changes. MASTOID AIR CELLS: Unremarkable as visualized. No inflammatory changes. OTHER FINDINGS: None. IMPRESSION: No evidence of acute intracranial hemorrhage or calvarial fracture. Preliminary report was submitted by [facility] Radiology contains concordant findings.
--- NOTE | 2018-10-04 10:46 | RAD ---
Date of service: 10/03/2018 PROCEDURE: Radiographs of the Chest and Left Ribs. HISTORY: trauma COMPARISON: Comparison is made with 12/07/2017. TECHNIQUE: Frontal radiograph of the chest and multiple oblique radiographs of the left ribs were obtained. FINDINGS: LEFT RIBS: No fracture or focal lesion visualized. LUNGS: Clear. PLEURA: No pneumothorax or pleural fluid. CARDIOVASCULAR: Normal cardiac size. No pulmonary vascular congestion. No aortic atherosclerotic calcification present OTHER FINDINGS: None. IMPRESSION: Unremarkable radiographs of the chest and left ribs. No left rib fracture.
--- NOTE | 2018-10-08 19:50 | CARD ---
APPROVED REPORT Date of service: 10/03/2018 EKG Measurement Heart [id number] <Conclusion> Normal sinus rhythm Normal ECG
== END 2018-10-03 21:11 | disposition home or self-care (01) ==
LOC: C.ER 18:21
DX: S00.531A Contusion of lip, initial encounter (principal); S00.83XA Contusion of other part of head, initial encounter; S20.219A Contusion of unspecified front wall of thorax, initial encounter; W01.0XXA Fall on same level from slipping, tripping and stumbling without subsequent striking against object, initial encounter; I10 Essential (primary) hypertension